=== PATIENT | male | born 1965 | race Caucasian/White ===

== ENCOUNTER → 2017-03-20 | Outpatient (CLI) | payer MEDICARE | LOC: EMI 17:47 | DX: M54.16 Radiculopathy, lumbar region (principal); M25.78 Osteophyte, vertebrae; M99.53 Intervertebral disc stenosis of neural canal of lumbar region; M51.36 Other intervertebral disc degeneration, lumbar region; M51.37 Other intervertebral disc degeneration, lumbosacral region; M47.816 Spondylosis without myelopathy or radiculopathy, lumbar region; Z98.1 Arthrodesis status | CPT/HCPCS: 72148 ==